=== PATIENT | male | born 1990 | race African-American/Black ===

== ENCOUNTER 2019-03-15 08:11 | Emergency (ER) | payer SELFPAY ==
[~2019-03-15] VITALS: Ht 177.8 cm; Wt 71.8 kg
[2019-03-15 08:14] VITALS: BP 124/71
== END 2019-03-15 09:12 | disposition home or self-care (01) ==
LOC: ED 08:42
DX: S61.256A Open bite of right little finger without damage to nail, initial encounter (principal); F17.200 Nicotine dependence, unspecified, uncomplicated; Y04.1XXA Assault by human bite, initial encounter; Y93.89 Activity, other specified; Y92.89 Other specified places as the place of occurrence of the external cause; Y99.8 Other external cause status
CPT/HCPCS: 90471; 90715; 99283